=== PATIENT | male | born 1970 | race Caucasian/White ===

== ENCOUNTER 2018-03-16 13:52 | Emergency (ER) | payer OTHER ==
[~2018-03-16] VITALS: Ht 182.9 cm; Wt 109.1 kg
[2018-03-16 14:08] VITALS: Ht 182.9 cm; Wt 109.1 kg
[2018-03-16] MEDS ORDERED: CELEXA10 MG PO (14:12)
[2018-03-16] MEDS ORDERED: ZYRTEC10 MG PO (14:13)
[2018-03-16] MEDS ORDERED: CARDIZEM CD180 MG PO (14:13)
[2018-03-16] MEDS ORDERED: ASPIRIN325 MG PO (14:13)
[2018-03-16 14:40] LABS: BASOPHILS 0.1 % (0-2); EOSINOPHILS 1.5 % (0-7); HEMATOCRIT 41.4 % (42.0-54.0); HEMOGLOBIN 14.7 g/dL (13.5-17.5); IMMATURE GRANULOCYTES 0.3 % (0-5); LYMPHOCYTES 14.9 % (15-50); MCH 30.2 pg (26.0-34.0); MCHC 35.5 g/dL (31.0-37.0); MEAN PLATELET VOLUME 9.7 fL (7.4-10.4); MONOCYTES 7.2 % (2-11); PLATELET COUNT 243 10x3/uL (130-400); RBC 4.87 10x6/uL (4.20-6.10); RDW 14.3 % (11.5-14.5); WBC 14.7 10x3/uL (4.8-10.8)
[2018-03-16 15:07] LABS: ALKALINE PHOSPHATASE 53 U/L (46-116); ALT (SGPT) 27 U/L (10-68); CALC OSMOLALITY 274 mosm/kg (275-300); CARBON DIOXIDE 30.8 mmol/L (21.0-32.0); CHLORIDE - SERUM 101 mmol/L (98-107); CREATININE - SERUM 0.9 mg/dL (0.6-1.3); GLUCOSE 102 mg/dL (74-106); POTASSIUM - SERUM 3.5 mmol/L (3.5-5.1); PROTEIN - SERUM 6.8 g/dL (6.4-8.2); SODIUM 137 mmol/L (136-145); UREA NITROGEN 14 mg/dL (7-18); eGFR NON AFRICAN AMERICAN > 90 mL/min (90-120)
[2018-03-16 15:14] LABS: PRO BNP 81 pg/mL (0-125)
[2018-03-16 15:20] LABS: TROPONIN-I < 0.017 ng/mL (0.000-0.060)
[2018-03-16 17:45] VITALS: BP 128/80
== END 2018-03-16 17:45 | disposition home or self-care (01) ==
LOC: D.ER 13:52
PROVIDERS: Family Medicine
DX: R06.00 Dyspnea, unspecified (principal); Z98.890 Other specified postprocedural states

== ENCOUNTER 2020-02-19 06:09 | Day surgery (SDC) | payer OTHER ==
[~2020-02-19] VITALS: Ht 182.9 cm; Wt 113.6 kg
--- NOTE | ~2020-02-19 | OP ---
PATIENT NAME: RENAN HAMILTON MEDICAL RECORD: [id number] :72 LOCATION:[facility] ADMISSION DATE: SURGEON: SHY PERES MD DATE OF OPERATION: 02/19/2020 PREOPERATIVE DIAGNOSIS: Left carpal tunnel syndrome. POSTOPERATIVE DIAGNOSIS: Left carpal tunnel syndrome. PROCEDURE PERFORMED: Left carpal tunnel release. INDICATIONS: Mr. Hamilton is a 49-year-old male with history of bilateral carpal tunnel syndrome, worse on the left. He complains of numbness and tingling in his hands, which is beginning to affect his activities. 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 I talked to him about options for continued conservative versus surgical management. He would like to proceed with surgery for left carpal tunnel release. Risks, benefits, and alternatives of surgery discussed with the patient include but not limited to pain, infection, bleeding, damage to surrounding structures, particularly the median nerve and potential need for further surgery. All questions were answered. Consent was obtained preoperatively. DESCRIPTION OF PROCEDURE: The patient was met in the holding area where his identity and confirmation of procedure was performed. He was then taken to the operating room. He was placed supine on the operating table and anesthesia was administered. Tourniquet was applied to left arm and left arm was prepped and draped in a sterile fashion. The patient received preoperative antibiotics and a timeout was performed before initiating the case. On initiation of the case, an incision was made at the palm over the carpal tunnel in line with the fourth ray. We incised through the skin and subcutaneous tissues dissected down to the transverse carpal ligament. It was then incised and a freer was inserted. We continued our release distally, protecting the median nerve. We then continued our release proximally until the ligament was completely released. Carpal tunnel was then explored, did not show any abnormalities, tissue within the compartment was inflamed with some thickening of the tissue, especially around the median nerve. Wound was irrigated thoroughly with saline. Hemostasis was obtained and 0.25% Marcaine with epinephrine was then injected in the soft tissues of the palm around our incision. Incision was then closed with a Prolene suture and a sterile dressing was placed. The patient was turned back over to anesthesia where he was awakened, extubated, and taken to recovery in stable condition. POSTOPERATIVE PLAN: The patient is going to return home with his family. He needs to leave the dressing on for approximately 72 hours and then may remove for dry dressing changes as needed. We will plan to see him back in 2 weeks to evaluate his progress. ANESTHESIA: General LMA. COMPLICATIONS: None. ESTIMATED BLOOD LOSS: 5 mL. TRANSINT:[id number] Voice Confirmation ID: [id number] DOCUMENT ID: [id number] OPERATIVE REPORT [id number] RENAN HAMILTON BRENT M MD CC: [id number] DICTATION DATE: 02/20/20 1530 [employer] SAL[employer] ENGINEER: 02/20/208 [facility] 02/19/[address] [id number]
[~2020-02-19 06:09] MED LIST: ASPIRIN325 MG PO; CARDIZEM CD180 MG PO; CELEXA10 MG PO; TOPROL XL25 MG PO; ZYRTEC10 MG PO
[2020-02-19 06:43] LABS: HEMATOCRIT 44.7 % (42.0-54.0); HEMOGLOBIN 15.1 g/dL (13.5-17.5); MCHC 33.8 g/dL (31.0-37.0); MCV 85.8 fL (80.0-100.0); MEAN PLATELET VOLUME 9.8 fL (7.4-10.4); RBC 5.21 10x6/uL (4.20-6.10); RDW 14.5 % (11.5-14.5); WBC 10.9 10x3/uL (4.8-10.8)
[2020-02-19 07:33] VITALS: BP 135/87; Ht 182.9 cm; Wt 113.6 kg
--- NOTE | 2020-02-19 11:37 | NUR ---
1120-REMOVED IV WITH CATH INTACT,DISPOSED INTO SHARPS,COVERED WITH MEDIPORE TAPE. VSS. PAIN 10/07. CAP REFILL WNL. STRONG REGULAR RADIAL PULSE. NO DISTRESS OR N/V. REVIEWED POST OP INSURUCTIONS AND FOLLOW UP APPOINTMENT WITH PT AND MOTHER AT BEDSIDE. VERBALIZED UNDERSTANDING.
--- NOTE | 2020-02-19 11:38 | NUR ---
1130-PT DRESSED. ESCORTED OUT VIA W/C WITH MOTHER AWAITING TO DRIVE HOME.
== END 2020-02-19 11:30 | disposition home or self-care (01) ==
LOC: D.OPS 06:09 → D.PAN 08:30 → D.OPS 11:30 → D.PAN 12:15
PROVIDERS: Anesthesiology; ATTEND Orthopaedic Surgery
DX: G56.02 Carpal tunnel syndrome, left upper limb (principal); M79.645 Pain in left finger(s)

== ENCOUNTER 2020-03-26 05:56 | Day surgery (SDC) | payer OTHER ==
[~2020-03-26] VITALS: Ht 182.9 cm; Wt 113.4 kg
[2020-03-26 06:36] VITALS: BP 119/75; Ht 182.9 cm; Wt 113.4 kg
--- NOTE | 2020-03-26 14:08 | OP ---
PATIENT NAME: RENAN HAMILTON MEDICAL RECORD: [id number] :72 LOCATION:[facility] ADMISSION DATE: SURGEON: SHY PERES MD DATE OF OPERATION: 03/26/2020 PREOPERATIVE DIAGNOSIS: Right carpal tunnel syndrome. POSTOPERATIVE DIAGNOSIS: Right carpal tunnel syndrome. PROCEDURE PERFORMED: Right carpal tunnel release. INDICATIONS FOR THE PROCEDURE: Mr. Hamilton is a 49-year-old male with history of right carpal tunnel syndrome. He has been having symptoms of pain and numbness in his hand that is getting progressively worse. He had a left carpal tunnel release approximately 6 weeks ago and is doing better. He has now decided to proceed with right carpal tunnel release. Risks, benefits, and alternatives of surgery were discussed with the patient. Consent was obtained. DESCRIPTION OF PROCEDURE: The patient was met in the holding area where his identity and confirmation of the procedure was performed. The right upper extremity was marked. He was taken to the operating room where he was placed supine on the operating table. Anesthesia was administered. Tourniquet was applied to the right arm and the right arm was prepped and draped in a sterile fashion. The patient received preoperative antibiotics and timeout was performed before initiating the case. On initiation of the case, the arm was exsanguinated and tourniquet was raised. Total tourniquet time was 29 minutes. Incision was made at the palm over the carpal tunnel in line with the fourth ray. We incised through the skin and subcutaneous tissues, dissected down to the transverse carpal ligament. The ligament was then incised and the freer was inserted. We continued our release distally with the scalpel and scissors to release the full ligament distally. We then turned, continued our release proximally with scissors to complete our release. The carpal tunnel was then explored. Did not have any lesions or abnormalities. Tourniquet was let down. Hemostasis was obtained. There was inflammation and thickening of the synovium in the carpal tunnel. Wound was irrigated thoroughly with saline. A 0.25% plain Marcaine was injected in the soft tissues at the palm. The skin was then closed with a Prolene suture. A sterile dressing was placed. The patient was turned back over to anesthesia where he was awakened, extubated, and taken to recovery room in stable condition. POSTOPERATIVE PLAN: The patient is going to return home with his family today. Needs to limit his activities with that hand for the next few weeks. We will see him back in clinic in 2 weeks. ANESTHESIA: General. COMPLICATIONS: None. ESTIMATED BLOOD LOSS: 5 mL. TRANSINT:[id number] Voice Confirmation ID: [id number] DOCUMENT ID: [id number] OPERATIVE REPORT [id number] RENAN HAMILTON BRENT M MD at 1408 CC: [id number] DICTATION DATE: 03/26/20 0951 CAR USHER: 03/26/20 1223 [facility] 03/26/20 [id number] [place] [address]
== END 2020-03-26 11:07 | disposition home or self-care (01) ==
LOC: D.OPS 05:56
PROVIDERS: ATTEND Orthopaedic Surgery
DX: G56.01 Carpal tunnel syndrome, right upper limb (principal)